=== PATIENT | female | born 1935 | race Caucasian/White ===

== ENCOUNTER 2018-03-25 16:42 | Inpatient (IN) | payer MEDICARE ==
--- NOTE | 2018-03-25 18:22 | ULT ---
RIGHT UPPER QUADRANT ULTRASOUND: 03/25/18 HISTORY: Right upper quadrant pain. Multiple longitudinal and transverse images of the right upper quadrant of the abdomen is obtained us ing a multihertz curvilinear transducer. Real time, color flow and spectral waveform doppler analysis demonstrates the liver to be unremarkable. The gallbladder is distended with gallbladder wall thickening measuring approximately 3 mm. Some isabel cholecystic fluid seen. Numerous echogenic foci seen within the gallbladder which suggests gallstones . The common bile duct is abnormally dilated measuring 10 mm. Findings concerning for possible choledo cholithiasis. The right kidney is unremarkable. No evidence of ascites seen. IMPRESSION: 1. Cholelithiasis and gallbladder distention with surrounding edema concerning for cholecystitis . 2. Abnormally dilated common bile duct concerning for choledocholithiasis. Surgical consultation is recommended. POS: JESÚS
[2018-03-25] MEDS ORDERED: Acetaminophen 325 MG TAB PO PRN (18:41)
[2018-03-25] MEDS ORDERED: Ondansetron PF 4 MG/2 ML Vial IVP PRN (18:41)
[2018-03-25] MEDS ORDERED: Ondansetron ODT 4 MG TAB SL PRN (18:41)
[2018-03-25] MEDS ORDERED: Ketorolac Tromethamine 30 MG/ML VIAL IVP PRN (18:42)
[2018-03-25] MEDS: Sodium Chloride 0.9% 1,000 ML IV SCH (22:04)
[2018-03-25 22:44] VITALS: BMI 24.5
[2018-03-26] MEDS: Sodium Chloride 0.9% 1,000 ML IV SCH (05:46)
[2018-03-26] MEDS ORDERED: Morphine 4 MG/ML VIAL SLOW IVP PRN ×2 (07:08→07:14)
[2018-03-26] MEDS: D5 1/2 NS w/20 mEq KCL 1,000 ML IV SCH ×2 (09:05→14:51)
--- NOTE | 2018-03-26 09:28 | HP ---
CHIEF COMPLAINT: Right upper quadrant abdominal pain. HISTORY OF PRESENT ILLNESS: The patient is an 82-year-old female with a two-day history of right upper quadrant pain associated with nausea and diarrhea. She went to the emergency room in [place] twice since Thursday, was admitted last night. She denies fever. No previous episodes. PAST MEDICAL HISTORY: Hypothyroidism. PAST SURGICAL HISTORY: She has had thyroid surgery for benign nodule. MEDICATIONS: She is on Synthroid. ALLERGIES: ALLERGY TO PENICILLIN, BUT SHE SAYS SHE TAKES AMOXICILLIN AND HAS NO REACTION. SOCIAL HISTORY: She is . No tobacco or alcohol. FAMILY HISTORY: Family history of arthritis. PHYSICAL EXAMINATION: VITAL SIGNS: Temperature 98.6, pulse 78, blood pressure 124/77. GENERAL: She is awake, alert. She is holding her right side. HEENT: No jaundice. LUNGS: Clear. HEART: Regular rate and rhythm. ABDOMEN: Soft, but she has exquisite tenderness in the right upper quadrant with a positive Wiggins sign. EXTREMITIES: Unremarkable. LAB[place]AT[place]: [place] [address], H and H 15 and 48, platelet count 261. Electrolytes are fine, but her bilirubin is elevated at 1.8 and her calcium is elevated at 10.7. Urinalysis clear. She had abdominal ultrasound showing a thickened gallbladder wall, multiple cholelithiasis. She has an abnormally dilated common bile duct suspicious for choledocholithiasis at 10 mm. ASSESSMENT: Acute cholecystitis with possible choledocholithiasis. PLAN: GI consultation for possible ERCP. Will need laparoscopic cholecystectomy. Job ID: [id number]
[2018-03-26] MEDS ORDERED: Indomethacin 50 MG SUPP ONE (10:36)
[2018-03-26] MEDS ORDERED: Iothalamate Meglumine 60% 50 ML VIAL FS ONE (10:36)
[2018-03-26] MEDS ORDERED: Fentanyl 100 MCG/2 ML VIAL ONE (10:46)
[2018-03-26 11:32] LABS: ALT (SGPT) 9 U/L (8-55); AST (SGOT) 17 U/L (5-34); Albumin 3.1 g/dL (3.4-4.8); Alkaline Phosphatase 128 U/L (40-150); Bilirubin, Direct 0.6 mg/dL (0.1-0.3); Bilirubin, Total 1.2 mg/dL (0.2-1.2); Protein, Total 6.3 g/dL (6.0-8.3)
--- NOTE | 2018-03-26 12:58 | OP ---
DATE OF PROCEDURE: 03/26/2018 PROCEDURE PERFORMED: Endoscopic retrograde cholangiopancreatography with sphincterotomy. PREOPERATIVE DIAGNOSES: Choledocholithiasis and cholecystitis. DESCRIPTION OF PROCEDURE: Informed consent was obtained from the patient. She was sedated with general anesthesia. She was placed in the prone position, and the duodenoscope was advanced easily to the second portion of the duodenum. The ampulla appeared normal with flow of clear yellow bile. The pancreatic duct was initially cannulated with a wire alone. The sphincterotome was repositioned, and the common bile duct was selectively cannulated with the guidewire without difficulty. The cholangiogram showed the common bile duct dilated to 13 mm. The intrahepatic ducts were normal. A complete sphincterotomy was performed. The common bile duct was swept clear with a 12-mm balloon. The balloon passed easily through the sphincterotomy site. Small amount of sludge was extracted from the duct, however, no significant obstructing stone was present. The air and fluid were suctioned from her stomach. IMPRESSION: 1. Common bile duct dilated to 13 mm by cholangiogram with normal intrahepatic ducts. No clear filling defect was identified. 2. Complete sphincterotomy performed. 3. The 12-mm balloon swept through the bile duct with removal of a tiny amount of sludge, but the duct was otherwise clear. RECOMMENDATIONS: 1. Antibiotics. 2. Follow-through with laparoscopic cholecystectomy for tomorrow. Job ID: [id number]
--- NOTE | 2018-03-26 13:14 | RAD ---
ERCP: DATE: 03/26/18 HISTORY: Cholelithiasis with a dilated common duct noted on recent ultrasound. FINDINGS: A series of 5 images were presented for interpretation. They show filling of the common bile duct. Am pullary region is not definitely visualized on these views. I do not see any signs of any filling def ect. No emptying into the duodenum is seen at the time of this exam. IMPRESSION: Borderline dilated duct. No definite filling defects visualized on this exam. POS: TPC
--- NOTE | 2018-03-26 14:16 | CON ---
DATE OF CONSULTATION: 03/26/2018 CHIEF COMPLAINT: Abdominal pain. HISTORY OF PRESENT ILLNESS: Ms. Keene is an 82-year-old woman who woke up the night before last with right upper quadrant aching pain. The pain did not radiate. She had some nausea with it, but no vomiting. She had one episode of diarrhea yesterday, but no stool output since. She has had no blood in the stool or black stools. No chest pain or shortness of breath. The right upper quadrant pain is somewhat improved today after pain medicine, but she still has tenderness. PAST MEDICAL HISTORY: Hypothyroidism. PAST SURGICAL HISTORY: Thyroid nodule removed. FAMILY HISTORY: Negative for GI malignancy. SOCIAL HISTORY: No alcohol, tobacco, or drugs. ALLERGIES: PENICILLIN; HOWEVER, THIS IS QUESTIONABLE. MEDICATIONS: Prior to admission [place] Thyroid. REVIEW OF SYSTEMS: Negative x10 systems reviewed, except as stated in history of present illness. PHYSICAL EXAMINATION: VITAL SIGNS: Temperature 97.6, pulse 79, blood pressure 148/84. GENERAL: She is in no acute distress. Alert and oriented x3. HEENT: Eyes have no scleral icterus. Oropharynx is clear without lesions. NECK: No cervical or supraclavicular lymphadenopathy. LUNGS: Clear to auscultation bilaterally. HEART: Regular rate and rhythm without murmur. ABDOMEN: Soft, nontender, and nondistended. Bowel sounds are present. EXTREMITIES: No lower extremity edema. NEUROLOGICAL: Cranial nerves are grossly intact. LABORATORY DATA: White blood cell count 19.3, hemoglobin 15.2, platelets 261. Bilirubin 1.8, AST 17, ALT 13, alkaline phosphatase 138, albumin 3.9. IMAGING: Ultrasound shows cholelithiasis and gallbladder distention and edema. Dilation of the common bile duct was also noted. CT scan of the abdomen and pelvis showed changes of acute cholecystitis. Again, distention of the common bile duct. IMPRESSION: 1. Acute cholecystitis. 2. Possible choledocholithiasis with elevated bilirubin and dilated common bile ducts and known stones in the gallbladder. PLAN: ERCP. Cholecystectomy is planned as next step. Job ID: [id number]
[2018-03-26] MEDS: Clindamycin/D5W 600 MG in Premix Bag 1 BAG IVPB SCH ×2 (14:28→18:08)
[2018-03-26] MEDS ORDERED: Succinylcholine Chloride 20 MG/ML 10 ml SYRINGE FS ONE (15:47)
[2018-03-26] MEDS ORDERED: PROPOFOL 200 MG/20 ML VIAL ONE (15:47)
[2018-03-26] MEDS ORDERED: Lidocaine 1% PF 5 ML VIAL ONE (15:47)
[2018-03-26] MEDS ORDERED: PHENYLEPHRINE-NS 100 MCG/ML 10 ML SYRINGE ONE (15:47)
[2018-03-26] MEDS ORDERED: Ondansetron PF 4 MG/2 ML Vial ONE (15:47)
[2018-03-26] MEDS ORDERED: Dexamethasone 20 MG/5 ML VIAL ONE (15:47)
--- NOTE | 2018-03-26 20:27 | PRG ---
DATE OF SERVICE: 03/26/2018 SUBJECTIVE: Ms. Keene is an 82-year-old woman, who was admitted with acute cholecystitis with cholelithiasis and choledocholithiasis. The patient underwent an uneventful ERCP earlier today with sphincterotomy. She reports no ongoing abdominal pain. OBJECTIVE: VITAL SIGNS: Remain stable. Vital signs in fact does include a blood pressure 130/81, pulse 57, respiratory rate is 14, temperature is 97.4 degrees Fahrenheit, oxygen saturation 93% on room air. HEART: Reveals regular rate and rhythm. No murmurs or gallops auscultated. LUNGS: Clear to auscultation bilaterally. Breathing, regular and nonlabored. ABDOMEN: Soft, nontender, nondistended. NEUROLOGIC: Reveals no focal deficits present. LABORATORY FINDINGS: Today includes LFTs; total bilirubin is 1.2, AST and ALT are 17 and 9 respectively. IMPRESSIONS: 1. Acute cholecystitis with cholelithiasis. 2. Choledocholithiasis likely passed common bile duct stone, status post ERCP with sphincterotomy. PLAN: Laparoscopic cholecystectomy. Above findings and plan discussed with the patient and at bedside. I have advised the patient of the risks and benefits of the proposed surgery to include, but not limited to, bleeding, infection, injury to bile duct or surrounding structures. She indicates understanding information given. I have answered her questions. The patient was previously seen in consultation by Dr. Orellana, and I am covering for Dr. Orellana this weekend. Job ID: [id number]
[2018-03-27] MEDS: D5 1/2 NS w/20 mEq KCL 1,000 ML IV SCH ×4 (00:25→23:27)
[2018-03-27] MEDS: Clindamycin/D5W 600 MG in Premix Bag 1 BAG IVPB SCH ×5 (00:25→23:27)
[2018-03-27 04:41] LABS: #Basophils 0.1 thou/uL (0.0-0.2); #Lymphocytes 1.1 thou/uL (1.20-3.40); #Monocytes 0.7 thou/uL (0.11-0.59); #Neutrophils 7.1 thou/uL (1.40-6.50); %Basophils 0.6 % (0.0-1.0); %Eosinophils 0.1 % (0.0-10.0); %Lymphocytes 12.4 % (21.0-51.0); %Monocytes 7.6 % (0.0-10.0); %Neutrophils 79.4 % (42.0-75.0); Hemoglobin 12.5 g/dL (12.0-16.0); Mean Corpuscular HGB CONC 32.4 g/dL (32.0-36.0); Mean Corpuscular Hemoglobin 30.9 pg (27.0-31.0); Mean Corpuscular Volume 95.2 fL (78.0-98.0); Mean Platelet Volume 8.4 fL (7.4-10.4); Platelet Count 208 thou/uL (130-400); RBC Distribution Width 11.8 % (11.5-14.5); Red Blood Cell (RBC) Count 4.03 mill/uL (4.20-5.40)
[2018-03-27 05:02] LABS: ALT (SGPT) 10 U/L (8-55); AST (SGOT) 14 U/L (5-34); Alkaline Phosphatase 123 U/L (40-150); Anion Gap 8 mmol/L (10-20); BUN (Urea Nitrogen) 13 mg/dL (9.8-20.1); Bilirubin, Total 0.8 mg/dL (0.2-1.2); Calc. Creatinine Clearance 65 mL/min (70-130); Calcium 9.3 mg/dL (7.8-10.44); Carbon Dioxide 28 mmol/L (23-31); Chloride 101 mmol/L (98-107); Estimated GFR-MDRD 76; Glucose 181 mg/dL (83-110); Potassium 4.9 mmol/L (3.5-5.1); Sodium 132 mmol/L (136-145)
[2018-03-27] MEDS ORDERED: Bupivacaine HCl 0.5%/Epinephrine 1:200,000/PF 30 ml Vial ONE (09:15)
[2018-03-27] MEDS ORDERED: Fentanyl 100 MCG/2 ML VIAL ONE ×4 (10:17→13:04)
[2018-03-27] MEDS ORDERED: Promethazine HCl 25 MG/ML VIAL SLOW IVP PRN (11:49)
[2018-03-27] MEDS ORDERED: Ondansetron HCl/PF 4 MG/2 ML Vial IVP PRN (11:49)
[2018-03-27] MEDS ORDERED: Promethazine HCl 25 MG/ML VIAL IM PRN (11:49)
[2018-03-27] MEDS ORDERED: SUGAMMADEX SODIUM 500 MG/5 ML VIAL ONE (12:01)
[2018-03-27] MEDS ORDERED: traMADol HCl 50 MG TAB PO PRN (12:32)
[2018-03-27] MEDS ORDERED: Ketorolac Tromethamine 30 MG/ML VIAL ONE (12:34)
[2018-03-27] MEDS ORDERED: Ketorolac Tromethamine 30 MG/ML VIAL IVP SCH (12:45)
--- NOTE | 2018-03-27 12:45 | OP ---
DATE OF PROCEDURE: 03/27/2018 PREOPERATIVE DIAGNOSES: 1. Acute cholecystitis with cholelithiasis. 2. Choledocholithiasis, status post endoscopic retrograde cholangiopancreatography with sphincterotomy. POSTOPERATIVE DIAGNOSES: 1. Acute cholecystitis with cholelithiasis. 2. Choledocholithiasis, status post endoscopic retrograde cholangiopancreatography with sphincterotomy. PROCEDURE PERFORMED: Laparoscopic cholecystectomy. ANESTHESIA: General endotracheal. ESTIMATED BLOOD LOSS: 20 mL. FLUIDS GIVEN: 1200 mL of crystalloid. COUNTS: Sponge and instrument counts were verified as correct x2. COMPLICATIONS: None apparent at the time of operation. INDICATIONS FOR OPERATION: This is an 82-year-old woman, presented with abdominal pain. Clinical radiographic examination was consistent with acute cholecystitis with cholelithiasis as well as choledocholithiasis. The patient underwent an uneventful ERCP yesterday with sphincterotomy. She was brought to the operating room today for laparoscopic cholecystectomy. FINDINGS: Consistent with a markedly dilated gallbladder with necrotic back wall, although gallbladder is in the usual anatomic location. DESCRIPTION OF OPERATION: Informed consent was obtained for the patient. She was brought to the operating room and placed in supine position. Following general anesthesia, abdomen was sterilely prepped and draped in the usual fashion. The skin below the umbilicus was infiltrated with 0.5% Marcaine with epinephrine and a small curvilinear infraumbilical incision was made using 11 scalpel. Umbilical stalk was grasped with Maria Del Carmen and elevated. Veress needle was inserted through the incision and placed in the peritoneal cavity through which the abdomen was insufflated with 3 L of CO2 gas. The intraabdominal pressure was noted at 2 mmHg. Following abdominal insufflation, Veress needle was removed and a 5-mm trocar was introduced using a Visiport under laparoscopy. Laparoscopy confirmed proper placement of the port. No injuries to underlying structures. Additional laparoscopy reveals the right upper quadrant completely encased by omental adhesions. Under direct laparoscopy, a 12-mm epigastric and two 5-mm right lateral subcostal ports were placed after the overlying skin were infiltrated with 0.5% Marcaine with epinephrine. An appropriate incision was made. The patient was placed in a reverse Trendelenburg position, rotated to the left. I introduced [place] dissector with cautery using this to take down omental adhesions to reveal markedly dilated thick-walled gallbladder in the usual anatomic location. Gallbladder wall was quite hyperemic. Under direct laparoscopy, omental adhesions were then taken down revealing the distal two-thirds of the gallbladder. At this juncture, a Prestige grasper was introduced through the right lateral subcostal port grasping the fundus of the gallbladder, which was elevated cephalad. Omental adhesions were dissected free from the remainder of the gallbladder. A second Prestige grasper was introduced through the right medial subcostal port grasping the Rasheeda pouch, which was retracted laterally. Cystic duct was carefully dissected free from surrounding structures and divided between clips. I applied two clips proximally and a single clip at the junction of the cystic duct and gallbladder. Cystic artery was dissected free from surrounding structures and divided between clips in a similar fashion. Gallbladder surface was removed from the liver bed using cautery. Gallbladder fossa was oozy of some venous blood. Hemostasis readily achieved using 1 x 2 inch piece of fibrillar. Operative site was irrigated with saline. #19 Pawel drain was introduced into the subhepatic space and I allowed to exit the abdominal cavity through the right lateral subcostal port. The drain was secured to anterior abdominal wall using 2-0 silk suture. Fascia of the epigastric port was then closed using 0 Vicryl suture and Endo Close device on the laparoscopy. The abdomen was desufflated. All ports and instruments were removed and accounted for. Skin incisions were closed using 4-0 Monocryl suture in subcuticular fashion. Dermabond was applied over incisional closure. The patient tolerated the operation without any apparent complication and was returned to the recovery room in satisfactory condition. Job ID: [id number]
--- NOTE | 2018-03-27 13:06 | PRG ---
DATE OF SERVICE: 03/27/2018 SUBJECTIVE: Ms. Keene underwent cholecystectomy today. Findings of severe cholecystitis were encountered with apparent necrosis of the posterior wall of the gallbladder. She is now doing well postoperatively. She has some appropriate pain postoperatively in the right upper thigh. OBJECTIVE: LUNGS: Clear to auscultation bilaterally. HEART: Regular rate and rhythm. She has a drain in place. IMPRESSION: 1. Acute cholecystitis, status post laparoscopic cholecystectomy. 2. Small amount of sludge in the bile duct, negative for stone which may have passed, status post sphincterotomy. PLAN: 1. She will advance her diet postoperatively. 2. I will sign off. Please call if GI can be of assistance. Job ID: [id number]
[2018-03-27] MEDS: Acetaminophen 500 MG TAB PO SCH ×2 (13:49→18:04)
[2018-03-27] MEDS: traMADol HCl 50 MG TAB PO PRN ×2 (14:41→21:03)
[2018-03-27] MEDS ORDERED: PROPOFOL 200 MG/20 ML VIAL ONE (16:14)
[2018-03-27] MEDS ORDERED: Rocuronium Bromide 10 MG/ML (10ML VIAL) ONE (16:14)
[2018-03-27] MEDS ORDERED: Lidocaine 1% PF 5 ML VIAL ONE (16:14)
[2018-03-27] MEDS ORDERED: Dexamethasone 20 MG/5 ML VIAL ONE (16:14)
[2018-03-27] MEDS ORDERED: ePHEDrine 50 MG/ML VIAL ONE (16:14)
[2018-03-27] MEDS ORDERED: Ondansetron PF 4 MG/2 ML Vial ONE (16:14)
[2018-03-27] MEDS ORDERED: Ibuprofen 600 MG TAB PO PRN (18:00)
[2018-03-28] MEDS: Acetaminophen 500 MG TAB PO SCH ×3 (02:38→11:59)
[2018-03-28] MEDS: Clindamycin/D5W 600 MG in Premix Bag 1 BAG IVPB SCH ×2 (05:49→11:55)
[2018-03-28] MEDS: D5 1/2 NS w/20 mEq KCL 1,000 ML IV SCH (07:31)
[2018-03-28] MEDS: traMADol HCl 50 MG TAB PO PRN (08:30)
[2018-03-28 08:40] LABS: #Lymphocytes 2.3 thou/uL (1.20-3.40); %Basophils 0.1 % (0.0-1.0); %Eosinophils 0.4 % (0.0-10.0); %Lymphocytes 22.1 % (21.0-51.0); %Monocytes 9.7 % (0.0-10.0); %Neutrophils 67.7 % (42.0-75.0); Hemoglobin 12.3 g/dL (12.0-16.0); Mean Corpuscular HGB CONC 32.1 g/dL (32.0-36.0); Mean Corpuscular Hemoglobin 30.9 pg (27.0-31.0); Mean Corpuscular Volume 96.1 fL (78.0-98.0); Mean Platelet Volume 8.5 fL (7.4-10.4); Platelet Count 233 thou/uL (130-400); RBC Distribution Width 12.2 % (11.5-14.5); White Blood Cell (WBC) Count 10.4 thou/uL (4.8-10.8)
[2018-03-28] MEDS ORDERED: Famotidine/PF 20 mg/2ml Vial SLOW IVP SCH (09:00)
[2018-03-28 09:03] LABS: Anion Gap 11 mmol/L (10-20); BUN (Urea Nitrogen) 6 mg/dL (9.8-20.1); Calc. Creatinine Clearance 72 mL/min (70-130); Calcium 8.9 mg/dL (7.8-10.44); Carbon Dioxide 26 mmol/L (23-31); Chloride 103 mmol/L (98-107); Estimated GFR-MDRD 86; Glucose 104 mg/dL (83-110); Magnesium 1.8 mg/dL (1.6-2.6); Phosphorus 2.4 mg/dL (2.3-4.7); Potassium 4.4 mmol/L (3.5-5.1); Sodium 136 mmol/L (136-145)
[2018-03-28 11:48] VITALS: BP 159/89; TEMP 97.6
--- NOTE | 2018-03-28 14:03 | DIS ---
DATE OF ADMISSION: 03/26/2018 DATE OF DISCHARGE: 03/28/2018 DISCHARGING PHYSICIAN: Dr. Spears. YOUTH PROBATION OFFICER: Dr. Andriy Grayson with Gastroenterology. ADMITTING DIAGNOSES: 1. Acute cholecystitis with cholelithiasis. 2. Choledocholithiasis. DISCHARGE DIAGNOSES: 1. Acute cholecystitis with cholelithiasis. 2. Choledocholithiasis. OPERATIONS AND PROCEDURES: 1. ERCP with sphincterotomy on by Dr. Andriy Grayson. 2. Laparoscopic cholecystectomy on 03/27/[address] Spears. Please see separate dictations for the procedure notes. HISTORY AND HOSPITAL COURSE: An 82-year-old woman, presented with abdominal pain. Clinical radiographic examination was consistent with acute cholecystitis with cholelithiasis and choledocholithiasis. The patient underwent an uneventful ERCP with sphincterotomy on . One day later, she underwent a laparoscopic cholecystectomy. Following uneventful surgery, the patient was readmitted to the surgical floor, where she remained at time of discharge. On postop day #1, she was ambulating with minimal difficulty. The pain is adequately controlled on oral analgesics. She is tolerating general diet. She is having normal bowel and urinary function. Incisional wound remains intact, clean, and dry. The Caden-Berger drain was removed without incident, having returned only scant amount of serous fluid. She clearly has no peritoneal signs on examination. In fact, her vital signs today included a blood pressure of 137/85, pulse 64, respiratory rate is 18, temperature 98 degrees Fahrenheit, and oxygen saturation 95% on room air. Laboratory studies today include a CBC with 10,400 white blood cells, hemoglobin and hematocrit stable at 12.3 and 38.4 respectively. Platelet count is 233,000. Metabolic profile; sodium 136, potassium 4.4, chloride is 103, bicarb is 26, BUN 6, creatinine 0.66, magnesium 1.8, phosphorus 2.4. The patient will be discharged home today with the following instructions: 1. She follows up with me in the Surgery [facility] in 2 weeks. 2. She is to resume her pre-hospital medications as prescribed by her primary care physician. 3. Additionally, she may take Tylenol 1000 mg p.o. q.6 hours alternating this with ibuprofen 600 mg p.o. q.8 hours p.r.n. pain. 4. She is also given a prescription for tramadol 50 mg, #30, to be taken one to two p.o. q.6 hours p.r.n. breakthrough pain. 5. She is to call me with any questions or problems including exacerbation of abdominal pain, intolerance to oral intake, fever in excess of 101 degrees Fahrenheit. 6. The patient is encouraged to ambulate daily to avoid complications of venous thromboembolism. 7. She may follow up with her primary care physician as needed. Above instructions given to the patient and her family at bedside. They all indicated understanding of information given. I have answered their questions. Job ID: [id number]
== END 2018-03-28 13:40 | disposition home or self-care (01) | DRG 419 ==
LOC: ERS 16:42 → SURG A 18:42 → OBSVTOIN 03-26 07:08
PROVIDERS: ADMIT Surgery; ATTEND Surgery
PROC: 0FT44ZZ Resection of Gallbladder, Percutaneous Endoscopic Approach (ICD-10-PCS; principal; 2018-03-26)
PROC: 0F798ZZ Dilation of Common Bile Duct, Via Natural or Artificial Opening Endoscopic (ICD-10-PCS; 2018-03-26)
DX: K80.00 Calculus of gallbladder with acute cholecystitis without obstruction (principal)
CPT/HCPCS: 36415; 74330; 76705; 80048; 80053; 80076; 83735; 84100; 85025; 88304; 93005; J0670; J1100; J1885; J1956; J2001; J2270; J2405; J2704; J3010; J3490; Q9961; S0028